=== PATIENT | female | born 1965 | race Caucasian/White ===

== ENCOUNTER 2023-05-25 12:21 | Emergency (ER) | payer OTHER ==
[~2023-05-25] VITALS: Ht 160 cm; Wt 80.0 kg
[2023-05-25] MEDS ORDERED: IBUPROFEN 600MG TABLET PO ONE (14:45)
[2023-05-25] MEDS ORDERED: NAPR220C61 MT (16:05)
[2023-05-25] MEDS ORDERED: IBUPROFEN 600MG TABLET PO NR (16:30)
[2023-05-25 17:15] VITALS: BP 142/78; PULSE 88; RESP 18; TEMP 98.7
== END 2023-05-25 18:05 | disposition home or self-care (01) ==
LOC: ER 13:33
DX: S82.832A Other fracture of upper and lower end of left fibula, initial encounter for closed fracture (principal); F19.90 Other psychoactive substance use, unspecified, uncomplicated; Z88.1 Allergy status to other antibiotic agents; W01.0XXA Fall on same level from slipping, tripping and stumbling without subsequent striking against object, initial encounter; Y93.9 Activity, unspecified; Y92.89 Other specified places as the place of occurrence of the external cause; Y99.8 Other external cause status
CPT/HCPCS: 73560; 73590; 73610; 73620; 29515; 99284; Z7610